=== PATIENT | female | born 1990 | race Caucasian/White ===

== ENCOUNTER 2018-11-01 09:32 | Outpatient (CLI) | payer OTHER ==
--- NOTE | 2018-11-01 14:13 | RAD ---
HYSTEROSALPINGOGRAM: HISTORY: Infertility. FINDINGS: After explaining the procedure and answering all questions, the uterine cervix was exposed and cleans ed with Betadine. A small probe was used to confirm lower cervical patency. There has some difficul ty in positioning the catheter into the cervix. The catheter tip was unable to be passed into the en dometrial cavity. Balloon was partially inflated within the lower cervical canal for procedure. Injection of contrast shows a lengthened and initially somewhat stenotic cervical canal. Throughout the procedure, the cervical canal did enlarge in caliber. The uterine cavity demonstrates normal cap acity and contour. Each fallopian tube is patent with free spill bilaterally. Excess contrast was aspirated and catheter removed. The patient tolerated the procedure well and was dismissed in good condition. Fluoro time 0.6 minutes. IMPRESSION: 1. Patent bilateral fallopian tubes. Normal appearance of the endometrial cavity. 2. Initially somewhat stenotic upper cervical canal which showed normal caliber by the end of the pr ocedure. POS: [facility]
== END 2018-11-01 09:33 | disposition home or self-care (01) ==
LOC: RAD 09:32
PROVIDERS: ATTEND Obstetrics & Gynecology
DX: N97.9 Female infertility, unspecified (principal)
CPT/HCPCS: 58340; 74740

== ENCOUNTER 2019-09-12 14:38 | Inpatient (IN) | payer OTHER ==
[~2019-09-12 14:38] MED LIST: Bupivacaine 0.25% HCL 30 ML VIAL ONE
[2019-09-12 15:14] VITALS: BMI 30.1
[2019-09-12 15:35] LABS: Amnisure Internal Control QC ACCEPTABLE (ACCEPTABLE); Amnisure Test RUPTURE DETECTED (No Rupture)
[2019-09-12] MEDS ORDERED: Ondansetron PF 4 MG/2 ML Vial IVP PRN ×2 (16:04→21:48)
[2019-09-12] MEDS ORDERED: NS / Oxytocin 40 units/1000ml 1,000 ML IV PRN (16:04)
[2019-09-12] MEDS ORDERED: Lidocaine 1% (PF) 30 ML VIAL SC PRN (16:04)
[2019-09-12] MEDS ORDERED: Ibuprofen 800 MG TAB PO PRN (16:04)
[2019-09-12] MEDS ORDERED: HYDROcodone/Acetaminophen 5/325 mg Tablet PO PRN (16:04)
[2019-09-12] MEDS ORDERED: Butorphanol Tartrate 1 MG/ML VIAL SLOW IVP PRN (16:04)
[2019-09-12] MEDS ORDERED: hydrALAZINE 20 MG/ML VIAL SLOW IVP PRN (16:04)
[2019-09-12] MEDS ORDERED: Misoprostol 100 MCG TAB PO SCH (16:15)
[2019-09-12] MEDS ORDERED: Lactated Ringer's 1,000 ML IV SCH (16:15)
[2019-09-12] MEDS ORDERED: Penicillin G Potassium 5 MILL.UNITS in Sodium Chloride 0.9% 100 ML IVPB SCH (16:15)
[2019-09-12] MEDS: Lactated Ringer's 1,000 ML IV SCH (18:20)
[2019-09-12 18:30] LABS: Hemoglobin 13.5 g/dL (12.0-16.0); Mean Corpuscular HGB CONC 33.8 g/dL (32.0-36.0); Mean Corpuscular Hemoglobin 29.4 pg (27.0-31.0); Mean Platelet Volume 6.9 fL (7.4-10.4); Platelet Count 227 thou/uL (130-400); RBC Distribution Width 12.8 % (11.5-14.5); Red Blood Cell (RBC) Count 4.61 mill/uL (4.20-5.40); White Blood Cell (WBC) Count 13.4 thou/uL (4.8-10.8)
[2019-09-12] MEDS: NS w/ Oxytocin 10 units 500 ML IV SCH (18:30)
[2019-09-12] MEDS ORDERED: NS w/ Oxytocin 10 units 500 ML IV SCH (19:00)
[2019-09-12 19:12] LABS: Hep B Surf Ag Non-Reactive S/CO (NonReactive)
[2019-09-12 19:13] LABS: Syphilis Antibody Nonreactive (Nonreactive)
[2019-09-12] MEDS ORDERED: diphenhydrAMINE 50 MG/ML VIAL IVP PRN (21:48)
[2019-09-12] MEDS ORDERED: Promethazine HCl 25 MG/ML VIAL IM PRN (21:48)
[2019-09-12] MEDS ORDERED: Naloxone HCl 0.4 mg/ml Vial IVP PRN ×2 (21:48)
[2019-09-12] MEDS ORDERED: ePHEDrine/0.9% NaCl/PF SYRINGE 50 mg/10 ml SLOW IVP PRN (21:48)
[2019-09-12] MEDS ORDERED: Acetaminophen 325 MG TAB PO PRN (21:48)
[2019-09-12] MEDS ORDERED: Lactated Ringer's 500 ML IV PRN (21:48)
[2019-09-12] MEDS ORDERED: Communication Order-Pharmacy FS SCH (22:00)
[2019-09-12] MEDS ORDERED: Fentanyl 4 mcg/Bup 0.1% Cadd 100 ML ONE (22:34)
[2019-09-12] MEDS: Fentanyl 4 mcg/Bupivacaine 0.1% Cassette 100 ML EPIDURAL SCH (23:00)
[2019-09-12] MEDS: Penicillin G 2.5 MILL.units 2.5 MILL.UNITS in Premix Bag 1 BAG IVPB SCH (23:21)
[2019-09-13] MEDS: Lactated Ringer's 1,000 ML IV SCH ×2 (02:45→12:30)
[2019-09-13] MEDS: Penicillin G 2.5 MILL.units 2.5 MILL.UNITS in Premix Bag 1 BAG IVPB SCH ×3 (03:30→12:30)
[2019-09-13] MEDS: NS w/ Oxytocin 10 units 500 ML IV SCH (05:00)
[2019-09-13] MEDS ORDERED: Fentanyl 4 mcg/Bup 0.1% Cadd 100 ML ONE (05:35)
[2019-09-13] MEDS: Fentanyl 4 mcg/Bupivacaine 0.1% Cassette 100 ML EPIDURAL SCH (05:56)
[2019-09-13] MEDS ORDERED: NS / Oxytocin 40 units/1000ml 1,000 ML ONE (07:15)
[2019-09-13] MEDS ORDERED: Lidocaine 1% (PF) 30 ML VIAL ONE (07:15)
[2019-09-13] MEDS ORDERED: Preparation H Ointment 28 GM TUBE PR PRN (08:23)
[2019-09-13] MEDS ORDERED: Bisacodyl 10 MG SUPP PR PRN (08:23)
[2019-09-13] MEDS ORDERED: Milk Of Magnesia 30 ML UDCUP PO PRN (08:23)
[2019-09-13] MEDS ORDERED: Adacel (T-DAP) 0.5 ML SYRINGE IM ONE (08:23)
[2019-09-13] MEDS ORDERED: hydrALAZINE 20 MG/ML VIAL SLOW IVP PRN (08:23)
[2019-09-13] MEDS ORDERED: Benzocaine-Menthol 82.5 ML CAN TOP PRN (08:23)
[2019-09-13] MEDS ORDERED: Lanolin Ointment 7 GM TUBE TOP PRN (08:23)
[2019-09-13] MEDS ORDERED: traMADol HCl 50 MG TAB PO PRN (08:23)
--- NOTE | 2019-09-13 08:26 | PDOC.OPDEL ---
OB Operative/Delivery Note Delivery Dr/Surgeon: Nelda Pre-Delivery Diagnosis: ruptured membrane Procedure/Post Delivery Dx: spontaneous vaginal delivery Weeks gestation: 38 Anesthesia: epidural - Findings A Sex: male - 1 min: 9 - 5 min: 9 - Additional Findings/Plan Placenta delivered: spontaneous Repaired Obstetrical Laceration: right labial (repaired with 2-0 chromic interrupted sutures. 1 degree perineal) Estimated blood loss: 300ml qbl Post delivery plan: routine recovery
[2019-09-13] MEDS ORDERED: NS / Oxytocin 40 units/1000ml 1,000 ML IV SCH (08:30)
[2019-09-13] MEDS: Docusate Calcium (SURFAK) 240 MG CAP PO SCH ×2 (12:29→21:04)
[2019-09-13] MEDS: Ibuprofen 800 MG TAB PO SCH ×2 (14:21→21:03)
[2019-09-13] MEDS: Ferrous Sulfate 325 MG TAB PO SCH (14:48)
[2019-09-14] MEDS: Ibuprofen 800 MG TAB PO SCH ×3 (05:32→21:08)
--- NOTE | 2019-09-14 06:03 | PDOC.PP ---
Post Progress Note Post Day #: PPD1 Subjective: No c/o. Wants to go home. PO intake tolerated: yes Ambulation: yes Vital Signs (12 hours) Temp Pulse Resp BP Pulse Ox 09/14/19 05:32 98.0 F 91 14 97/58 L 09/14/19 00:00 97.7 F 91 18 109/61 09/13/19 21:00 97 09/13/19 19:45 98.5 F 99 16 116/66 97 Weight Weight 82.1 kg - Physical Examination Respiratory: non-labored breathing Neurological: no gross focal deficits Psychiatric: normal affect Result Diagrams: 09/12/19 18:20 Additional Labs: Post Labs Blood Type A POSITIVE 09/12/19 18:19 Hep Bs Antigen Non-Reactive S/CO (NonReactive) 09/12/19 18:20 - Assessment/Plan Doing well s/p . Home per pt. request. Precautions reviewed. RTC [address] Lutz.
[2019-09-14] MEDS: Ferrous Sulfate 325 MG TAB PO SCH ×2 (08:23→15:15)
[2019-09-14] MEDS: Docusate Calcium (SURFAK) 240 MG CAP PO SCH ×2 (09:55→21:08)
[2019-09-15] MEDS: Ibuprofen 800 MG TAB PO SCH (05:06)
--- NOTE | 2019-09-15 06:03 | PDOC.PP ---
Post Progress Note Post Day #: 2 Subjective: Patient doing well. No significant overnight events. Lochia a little more than normal period. going well. Patient ready for d/c home. PO intake tolerated: yes Flatus: yes Ambulation: yes Vital Signs (12 hours) Temp Pulse Resp BP Pulse Ox 09/14/19 20:30 98.8 F 84 16 116/73 100 Weight Weight 82.1 kg - Physical Examination General: NAD Cardiovascular: RRR Respiratory: non-labored breathing Abdominal: + bowel sounds, lochia (little more than normal period), no distention, appropriately TTP Fundus firm & at: below Skin: no rash Neurological: no gross focal deficits Psychiatric: A&Ox3, normal affect Result Diagrams: 09/12/19 18:20 Additional Labs: Post Labs Blood Type A POSITIVE 09/12/19 18:19 Hep Bs Antigen Non-Reactive S/CO (NonReactive) 09/12/19 18:20 (1) Term delivered Code(s): O80 - ENCOUNTER FOR FULL-TERM UNCOMPLICATED DELIVERY Status: Acute - Assessment/Plan Routine PP care - Meeting PP milestones - Rh positive, rubella immune - Lochia a little more than normal period for patient - going well Dispo: Patient stable and ready for d/c home today.
[2019-09-15 08:32] VITALS: BP 130/66; TEMP 98.6
[2019-09-15] MEDS: Ferrous Sulfate 325 MG TAB PO SCH (08:54)
[2019-09-15] MEDS: Docusate Calcium (SURFAK) 240 MG CAP PO SCH (09:08)
== END 2019-09-15 12:15 | disposition home or self-care (01) | DRG 807 ==
LOC: L&D/OP 14:38 → L&D 18:13 → 3SW 09-13 11:17
PROVIDERS: ADMIT Obstetrics & Gynecology; ATTEND Obstetrics & Gynecology
PROC: 10E0XZZ Delivery of Products of Conception, External Approach (ICD-10-PCS; principal; 2019-09-13)
PROC: 3E033VJ Introduction of Other Hormone into Peripheral Vein, Percutaneous Approach (ICD-10-PCS; 2019-09-13)
PROC: 0HQ9XZZ Repair Perineum Skin, External Approach (ICD-10-PCS; 2019-09-13)
DX: O99.824 Streptococcus B carrier state complicating childbirth (principal); Z37.0 Single live birth; O70.0 First degree perineal laceration during delivery; Z3A.38 38 weeks gestation of pregnancy
CPT/HCPCS: 36415; 51702; 84112; 85027; 86780; 86850; 86900; 86901; 87340; 99285; C1726; J2001; J2540; J2590; J3490; S0020